=== PATIENT | male | born 1955 | race Caucasian/White ===

== ENCOUNTER 2020-08-08 16:02 | Emergency (ER) | payer OTHER ==
[~2020-08-08] VITALS: Ht 175.3 cm; Wt 66.7 kg
[2020-08-08 16:51] LABS: BASOPHILS ABSOLUTE AUTO 0.04 K/mm3 (0.00-0.23); BASOPHILS PERCENT AUTO 1 % (0-2); EOSINOPHILS ABSOLUTE AUTO 0.05 K/mm3 (0.00-0.68); EOSINOPHILS PERCENT AUTO 1 % (0-6); Hemoglobin 10.4 g/dL (13.5-17.5); IMMATURE GRAN ABSOLUTE AUTO 0.13 K/mm3 (0.00-0.10); IMMATURE GRAN PERCENT AUTO 3 % (0-1); LYMPHOCYTES ABSOLUTE AUTO 1.21 K/mm3 (0.84-5.20); LYMPHOCYTES PERCENT AUTO 26 % (21-46); MONOCYTES ABSOLUTE AUTO 0.54 K/mm3 (0.16-1.47); MONOCYTES PERCENT AUTO 12 % (4-13); Mean Corpuscular HGB 35.6 pg (26.0-34.0); Mean Corpuscular HGB Conc 30.6 g/dL (31.5-36.5); Mean Corpuscular Volume 116 fL (80-100); Mean Platelet Volume 9.9 fL (9.1-12.4); NEUTROPHILS ABSOLUTE AUTO 2.74 K/mm3 (1.96-9.15); NEUTROPHILS PERCENT AUTO 58 % (41-73); Platelet Count 243 K/mm3 (150-400); RDW Coefficient Variation 17.2 % (11.7-14.2); RDW Standard Deviation 71.8 fL (35.1-46.3); Red Blood Cell Count 2.92 M/mm3 (4.30-5.90); White Blood Cell Count 4.71 K/mm3 (4.00-11.30)
[2020-08-08 17:13] LABS: Alanine Aminotransfer (ALT/SGP 25 U/L (12-78); Albumin, Blood 3.6 g/dL (3.4-5.0); Albumin/Globulin Ratio 0.8 (0.8-1.8); Alk Phos 94 U/L (50-136); Anion Gap 3 mmol/L (6-16); Aspartate Aminotrans (AST/SGOT 15 U/L (12-37); Bilirubin, Total 0.3 mg/dL (0.1-1.0); Blood Urea Nitrogen 39 mg/dL (8-24); Bun/Creatinine Ratio 27.5 (12.0-20.0); CO2, Blood 28 mmol/L (21-32); Calcium, Blood 9.3 mg/dL (8.5-10.1); Chloride, Blood 109 mmol/L (98-108); Creatinine, Blood 1.42 mg/dL (0.60-1.20); Globulin, Blood 4.6 g/dL (2.2-4.0); Glomerular Filtration Rate 53 (60-); Glucose, Blood 86 mg/dL (70-99); Potassium, Blood 5.1 mmol/L (3.5-5.5); Sodium, Blood 140 mmol/L (136-145); Total Protein, Blood 8.2 g/dL (6.4-8.2); Troponin I <0.015 ng/mL (0.000-0.040)
[2020-08-08] MEDS ORDERED: HYDURE500 PO (17:23)
[2020-08-08] MEDS ORDERED: ESCI10 (17:24)
[2020-08-08] MEDS ORDERED: Prinivil10 MG (17:24)
[2020-08-08] MEDS ORDERED: CEPH500 PO (17:49)
[2020-08-08] MEDS ORDERED: Bactrim Ds Tab1 EACH PO (17:49)
== END 2020-08-08 18:02 | disposition home or self-care (01) ==
LOC: ER 16:02
PROVIDERS: Physician Assistant
DX: L03.114 Cellulitis of left upper limb (principal); F17.200 Nicotine dependence, unspecified, uncomplicated; Z79.899 Other long term (current) drug therapy
CPT/HCPCS: 36415; 80053; 84484; 85025; 93005; 93010; 99283-25; A9270-GY

== ENCOUNTER 2020-08-18 10:27 | Inpatient (IN) | payer OTHER ==
[~2020-08-18] VITALS: Ht 175.3 cm; Wt 76.8 kg
[~2020-08-18 10:27] MED LIST: Bactrim Ds Tab1 EACH PO; CEPH500 PO; ESCI10 PO; HYDURE500 PO; Prinivil10 MG PO
[2020-08-18 11:02] LABS: BASOPHILS ABSOLUTE AUTO 0.04 K/mm3 (0.00-0.23); BASOPHILS PERCENT AUTO 1 % (0-2); EOSINOPHILS ABSOLUTE AUTO 0.06 K/mm3 (0.00-0.68); EOSINOPHILS PERCENT AUTO 1 % (0-6); Hematocrit 30.1 % (37.0-53.0); Hemoglobin 9.2 g/dL (13.5-17.5); IMMATURE GRAN ABSOLUTE AUTO 0.06 K/mm3 (0.00-0.10); IMMATURE GRAN PERCENT AUTO 1 % (0-1); LYMPHOCYTES ABSOLUTE AUTO 1.22 K/mm3 (0.84-5.20); LYMPHOCYTES PERCENT AUTO 21 % (21-46); MONOCYTES ABSOLUTE AUTO 0.43 K/mm3 (0.16-1.47); MONOCYTES PERCENT AUTO 7 % (4-13); Mean Corpuscular HGB 36.7 pg (26.0-34.0); Mean Corpuscular HGB Conc 30.6 g/dL (31.5-36.5); Mean Corpuscular Volume 120 fL (80-100); Mean Platelet Volume 10.8 fL (9.1-12.4); NEUTROPHILS ABSOLUTE AUTO 4.02 K/mm3 (1.96-9.15); NEUTROPHILS PERCENT AUTO 69 % (41-73); Platelet Count 234 K/mm3 (150-400); RDW Coefficient Variation 16.5 % (11.7-14.2); RDW Standard Deviation 74.2 fL (35.1-46.3); Red Blood Cell Count 2.51 M/mm3 (4.30-5.90); White Blood Cell Count 5.83 K/mm3 (4.00-11.30)
[2020-08-18 11:29] LABS: Albumin, Blood 3.5 g/dL (3.4-5.0); Albumin/Globulin Ratio 0.9 (0.8-1.8); Bilirubin, Total 0.5 mg/dL (0.1-1.0); Bun/Creatinine Ratio 15.5 (12.0-20.0); Calcium, Blood 8.5 mg/dL (8.5-10.1); Creatinine, Blood 3.73 mg/dL (0.60-1.20); Potassium, Blood 6.5 mmol/L (3.5-5.5); Total Protein, Blood 7.5 g/dL (6.4-8.2)
[2020-08-18 15:06] LABS: Bun/Creatinine Ratio 15.9 (12.0-20.0); Creatinine, Blood 3.4 mg/dL (0.60-1.20); Potassium, Blood 5.6 mmol/L (3.5-5.5)
--- NOTE | 2020-08-18 18:06 | NUR ---
SHIFT SUMMARY; ASSUMED CARE FROM ER. TRANSFERS TO BED FROM ED [facility] INDEP[facility]ANT[facility]. A/A/OX4. REDNESS TO LEFT INNER UPPER ARM OUTLINED PER ORDERS. D5 1/2 NS INFUSING AT 100ML/HR PER ORDERS. INDEPENDANT IN ROOM. VSS, WILL CONTINUE TO MONITOR AND TREAT UNTIL CHANGE OF SHIFT.
[2020-08-18 21:42] LABS: Bun/Creatinine Ratio 16.5 (12.0-20.0); Calcium, Blood 8.9 mg/dL (8.5-10.1); Creatinine, Blood 3.16 mg/dL (0.60-1.20); Potassium, Blood 5.9 mmol/L (3.5-5.5)
[2020-08-19 00:05] LABS: Source, Urine Clean Catch
[2020-08-19 00:14] LABS: Bilirubin, Urine Neg (Neg); Blood, Urine 1+ (Neg); Glucose Qualitative, Urine Neg (Neg); Ketones, Urine Neg (Neg); Leukocyte Esterase, Urine Neg (Neg); Nitrite, Urine Neg (Neg); Protein, Urine Neg (Neg); Urobilinogen, Urine NORM (Normal)
[2020-08-19 00:24] LABS: Appearance, Urine Clear (Clear); Color, Urine Yellow (P-Yellow)
[2020-08-19 00:25] LABS: Bacteria Not Seen /hpf; Red Blood Cells, Urine 0-2 /hpf (0-2); Squamous Epithelial Cells Not Seen /hpf (Few); White Blood Cells, Urine Rare /hpf (0-5)
[2020-08-19 00:27] LABS: U Amphetamine Screen Not Detected; U Barbituate Screen Not Detected; U Benzodiazapine Screen Not Detected; U Buprenorphine Screen Not Detected; U Cannabinoids Screen DETECTED; U Cocaine Screen Not Detected; U Methadone Screen Not Detected; U Methamphetamine Screen Not Detected; U Opiates Screen Not Detected; U Oxycodone Screen Not Detected; U Phencyclidine Screen Not Detected; U Propoxyphene Screen Not Detected
[2020-08-19 01:05] LABS: Eosinophils-Raw #,Urine 0; White Blood Cells Urine Rare /hpf (0-5)
[2020-08-19 03:53] LABS: BASOPHILS ABSOLUTE AUTO 0.03 K/mm3 (0.00-0.23); BASOPHILS PERCENT AUTO 1 % (0-2); EOSINOPHILS ABSOLUTE AUTO 0.06 K/mm3 (0.00-0.68); EOSINOPHILS PERCENT AUTO 1 % (0-6); Hematocrit 27.6 % (37.0-53.0); Hemoglobin 8.4 g/dL (13.5-17.5); IMMATURE GRAN ABSOLUTE AUTO 0.06 K/mm3 (0.00-0.10); IMMATURE GRAN PERCENT AUTO 1 % (0-1); LYMPHOCYTES ABSOLUTE AUTO 1.28 K/mm3 (0.84-5.20); LYMPHOCYTES PERCENT AUTO 29 % (21-46); MONOCYTES ABSOLUTE AUTO 0.41 K/mm3 (0.16-1.47); MONOCYTES PERCENT AUTO 9 % (4-13); Mean Corpuscular HGB 36.5 pg (26.0-34.0); Mean Corpuscular HGB Conc 30.4 g/dL (31.5-36.5); Mean Corpuscular Volume 120 fL (80-100); Mean Platelet Volume 11.3 fL (9.1-12.4); NEUTROPHILS PERCENT AUTO 59 % (41-73); Platelet Count 204 K/mm3 (150-400); RDW Coefficient Variation 16.1 % (11.7-14.2); RDW Standard Deviation 71.7 fL (35.1-46.3); White Blood Cell Count 4.44 K/mm3 (4.00-11.30)
[2020-08-19 04:22] LABS: Albumin, Blood 3.1 g/dL (3.4-5.0); Anion Gap 1 mmol/L (6-16); Blood Urea Nitrogen 52 mg/dL (8-24); Bun/Creatinine Ratio 18.8 (12.0-20.0); CO2, Blood 29 mmol/L (21-32); Calcium, Blood 8.6 mg/dL (8.5-10.1); Chloride, Blood 109 mmol/L (98-108); Creatinine, Blood 2.76 mg/dL (0.60-1.20); Glomerular Filtration Rate 25 (60-); Glucose, Blood 108 mg/dL (70-99); Magnesium, Blood 2.2 mg/dL (1.6-2.4); Phosphorus, Blood 3.2 mg/dL (2.5-4.9); Potassium, Blood 5.7 mmol/L (3.5-5.5); Sodium, Blood 139 mmol/L (136-145)
--- NOTE | 2020-08-19 04:30 | NUR ---
SHIFT SUMMARY PT IS ALERT, ORIENTED, AND COOPERATIVE WITH CARE. VITALS HAVE BEEN STABLE T/O SHIFT WITH BP 130'S/70'S, HR 50-60'S, O2 SATS HIGH 90'S ON ROOM AIR. GLUCOSE HAS BEEN WNL WITH EVERY CHECK, 79-104. POTASSIUM LEVELS TRENDING DOWN. PT STATED HAVING A MILD HEADACHE T/O SHIFT, GAVE PRN ACETAMINOPHEN. PT DENIED ANY OTHER PAIN. RED AREA ON UPPER LEFT ARM IS UNCHANGED FROM MARKINGS PLACED ON SKIN. PT HAD A VERY UNEVENTFUL NIGHT. WILL CONTINUE TO MONITOR UNTIL SHIFT CHANGE.
[2020-08-19] MEDS ORDERED: ACET325 PO (11:40)
--- NOTE | 2020-08-19 12:48 | NUR ---
IVs REMOVED INTACT AND PRESSURE DRESSED. PT CALLS FOR [facility] HOME. PT EXPRESSED UNDERSTANDING OF STOPPING HOME MEDS UNTIL HIS PCP FOLLOW UP NEXT SATURDAY. PT AWARE THAT HE HAS AN RX FOR TYLENOL CALLED INTO [facility]. PT WHEELED OUT TO ENTRANCE BY PCT
== END 2020-08-19 12:32 | disposition home or self-care (01) | DRG 683 ==
LOC: ER 10:27 → PCU 12:47 → ER 15:08 → PCU 15:08
PROVIDERS: Emergency Medicine; Nurse Practitioner Acute Care; ADMIT Hospitalist
DX: N17.9 Acute kidney failure, unspecified (principal); L03.114 Cellulitis of left upper limb; E87.5 Hyperkalemia; Z59.0 Homelessness; I12.9 Hypertensive chronic kidney disease with stage 1 through stage 4 chronic kidney disease, or unspecified chronic kidney disease; F32.9 Major depressive disorder, single episode, unspecified; F17.220 Nicotine dependence, chewing tobacco, uncomplicated; E16.0 Drug-induced hypoglycemia without coma; T38.3X5A Adverse effect of insulin and oral hypoglycemic [antidiabetic] drugs, initial encounter; Y92.230 Patient room in hospital as the place of occurrence of the external cause; N18.30 Chronic kidney disease, stage 3 unspecified; D63.8 Anemia in other chronic diseases classified elsewhere; T46.4X5A Adverse effect of angiotensin-converting-enzyme inhibitors, initial encounter; Y92.9 Unspecified place or not applicable; D47.2 Monoclonal gammopathy
CPT/HCPCS: 36415; 76770; 76882; 80048; 80053; 80069; 81001; 82550; 82947; 83036; 83735; 84100; 84132; 85025; 87205; 93005; 93010; 96365; 96366; 96368; 96372-59; 96375; 96376; 99285-25; A9270; J0610; J0696; J1644; J1815; J7030; J7042

== ENCOUNTER → 2020-11-08 | Outpatient (CLI) | payer OTHER ==
[~2020-11-08] MED LIST changes: +ACET325 PO
[2020-11-17 17:10] LABS: COTININE <10.0 ng/mL (.); NICOTINE <10.0 ng/mL (.)
== END ==
LOC: LAB SRC 08:51 → LAB SHORT 08:51
PROVIDERS: Physician Assistant
DX: F17.220 Nicotine dependence, chewing tobacco, uncomplicated (principal)
CPT/HCPCS: G0480

== ENCOUNTER 2022-06-04 23:06 | Inpatient (IN) | payer OTHER ==
[~2022-06-04] VITALS: Ht 175.3 cm; Wt 72.6 kg
[2022-06-05] MEDS ORDERED: LISI20 PO (02:03)
[2022-06-05] MEDS ORDERED: HYDURE500 PO (02:03)
[2022-06-05] MEDS ORDERED: GABA300 PO (02:03)
[2022-06-05] MEDS ORDERED: ASPIR 8181 M1 PO (02:04)
[2022-06-05 02:27] LABS: Hematocrit 35.8 % (37.0-53.0); Hemoglobin 11.8 g/dL (13.5-17.5); Mean Corpuscular HGB 36.9 pg (26.0-34.0); Mean Corpuscular Volume 112 fL (80-100); RDW Coefficient Variation 14.2 % (11.7-14.2); RDW Standard Deviation 59.2 fL (35.1-46.3)
[2022-06-05 02:28] LABS: Albumin, Blood 3.4 g/dL (3.4-5.0); Albumin/Globulin Ratio 0.9 (0.8-1.8); Bilirubin, Total 0.6 mg/dL (0.1-1.0); Bun/Creatinine Ratio 10.4 (12.0-20.0); Calcium, Blood 9.5 mg/dL (8.5-10.1); Creatinine, Blood 2.59 mg/dL (0.60-1.20); Globulin, Blood 3.8 g/dL (2.2-4.0); Total Protein, Blood 7.2 g/dL (6.4-8.2)
[2022-06-05 02:55] LABS: NRBC ABSOLUTE 0.12 K/mm3 (0.00-0.02); NRBC Auto 0.1 /100 WBC (0.0-0.2)
[2022-06-05 02:56] LABS: White Blood Cell Count 156.96 K/mm3 (4.00-11.30)
[2022-06-05 03:40] LABS: BASOPHILS PERCENT MAN 0 % (0-2); EOSINOPHILS ABSOLUTE MAN 1.56 K/mm3 (0.00-0.68); EOSINOPHILS PERCENT MAN 1 % (0-6); LYMPHOCYTES ABSOLUTE MAN 9.41 K/mm3 (0.84-5.20); LYMPHOCYTES PERCENT MAN 6 % (21-46); MONOCYTES PERCENT MAN 0 % (4-13); TOTAL CELLS COUNTED 100
[2022-06-05 03:41] LABS: BLASTS PERCENT MAN 91 % (0-0); PROMYELOCYTE ABSOLUTE MAN 3.13 K/mm3 (0.00-0.00); PROMYELOCYTE PERCENT MAN 2 % (0-0)
[2022-06-05 05:25] LABS: Platelet Count 77 K/mm3 (150-400)
[2022-06-05 07:56] LABS: International Normalized Ratio 1.61; Prothrombin Time Results 16.4 Sec (9.7-11.5)
[2022-06-05 16:12] LABS: Hematocrit 33.1 % (37.0-53.0); Hemoglobin 10.9 g/dL (13.5-17.5)
--- NOTE | 2022-06-05 17:12 | NUR ---
SHIFT SUMMARY PATIENT IS ALERT AND ORIENTED. PATIENT IS IND IN ROOM. PATIENT IS A RECENT ADMIT WHO IS BEING TRANSFERRED TO [facility]. AWAITING COBRA TRANSFER, COVID TEST RESULT. THIS RN IS GIVING REPORT TO [facility]. PATIENT HAS HAD NO ACUTE EVENTS THIS SHIFT. VITAL SIGNS REVIEWED.
[2022-06-05 17:49] LABS: SARS-Cov-2 (COVID-19) PCR, MMC NEGATIVE (NEGATIVE)
--- NOTE | 2022-06-05 19:27 | NUR ---
REPORT GIVEN TO SILVERIO ROCK AT [facility] [id number]. . AWAITING TRANSPORT AT THIS TIME.
--- NOTE | 2022-06-05 20:50 | NUR ---
PT BEING TRANSFERED TO [address] PER [facility]. BELONGINGS SENT WITH PT.
== END 2022-06-05 20:30 | disposition short-term general hospital (02) | DRG 835 ==
LOC: ER 23:06 → MEDS 06-05 12:27
PROVIDERS: Nurse Practitioner Acute Care; Student in an Organized Health Care Education/Training Program; ADMIT Internal Medicine
DX: C95.00 Acute leukemia of unspecified cell type not having achieved remission (principal); K92.1 Melena; N17.9 Acute kidney failure, unspecified; F32.A Depression, unspecified; N18.30 Chronic kidney disease, stage 3 unspecified; I12.9 Hypertensive chronic kidney disease with stage 1 through stage 4 chronic kidney disease, or unspecified chronic kidney disease; D63.1 Anemia in chronic kidney disease; D69.6 Thrombocytopenia, unspecified; R59.0 Localized enlarged lymph nodes; Z79.899 Other long term (current) drug therapy
CPT/HCPCS: 36415; 71045; 74174; 80053; 85014; 85018; 85025; 85610; 85730; 86850; 86900; 86901; 93005; 93010; 96365-59; 96367-59; 96375-59; 96376-59; 99285-25; A9270; C9113; J0133; J1170; J1956; J2405; J7030; Q9967; U0004